=== PATIENT | female | born 1960 | race Caucasian/White ===

== ENCOUNTER 2018-11-05 20:00 | Observation (INO) | payer BC ==
[2018-11-05] MEDS ORDERED: Sodium Chloride 0.9% 10 ML Syringe FLUSH PRN ×2 (20:27→21:53)
[2018-11-05] MEDS ORDERED: Ondansetron 4 MG/2 ML SDV ONE (20:29)
[2018-11-05] MEDS ORDERED: Ondansetron 4 MG/2 ML SDV IVPUSH ONE (20:34)
--- NOTE | 2018-11-05 20:34 | EDM.PDOC ---
ED HPI GENERAL MEDICAL PROBLEM - General Chief Complaint: ENT Problem Stated Complaint: Dizziness Time Seen by Provider: 11/05/18 20:25 Source of Information: Reports: Patient History Limitations: Reports: No Limitations - History of Present Illness INITIAL COMMENTS - FREE TEXT/NARRATIVE: 58 YO WF presents to ER complaining of dizziness which began this am around 7am. Pt reports her alarm clock went off and she turned over to turn it off when she began to feel dizzy like the room was spinning and felt nauseated. Pt reports dizziness improved when she lays still and doesn't move her head. Pt reports she's able to sit up without dizziness but as soon as she turns her head she begins to feel dizziness/spinning sensation with associated nausea and vomiting x 4 today. Pt denies chest pain, shortness of breath or diaphoresis. Pt denies tinnitus, recent URI or sinusitis, no hearing loss or ear pain. Pt denies headache, fever/chills, or vaginal/rectal bleeding. Onset: Today Onset Date: 11/05/18 Onset Time: 07:00 Location: Reports: Head, Generalized Quality: Reports: Dull Severity: Moderate Improves with: Reports: Rest Worsens with: Reports: Movement Associated Symptoms: Reports: Nausea/Vomiting. 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 Denies: Ear Pain, Rhinitis, Sinus Problem, Vision Change Respiratory: Reports: No Symptoms Cardiovascular: Reports: No Symptoms Endocrine: Reports: No Symptoms GI/Abdominal: Reports: No Symptoms : Reports: No Symptoms Musculoskeletal: Reports: No Symptoms Skin: Reports: No Symptoms Neurological: Reports: Dizziness. Denies: Headache, Numbness, Paresthesia, Pre- Existing Deficit, Seizure, Syncope, Tingling, Trouble Speaking, Difficulty Walking, Weakness, Change in Speech, Gait Disturbance Psychiatric: Reports: No Symptoms Hematologic/Lymphatic: Reports: No Symptoms Immunologic: Reports: No Symptoms ED EXAM, DIZZINESS - Physical Exam Exam: See Below Exam Limited By: No Limitations General Appearance: Alert, WD/WN, No Apparent Distress Eye Exam: Bilateral Eye: EOMI, Nystagmus Nystagmus: worsens with head to L, worsens with head to R, reproducible, short duration Ears: Normal External Exam, Normal Canal, Hearing Grossly Normal, Normal TMs Nose: Normal Inspection, Normal Mucosa, No Blood Throat/Mouth: Normal Inspection, Normal Lips, Normal Teeth, Normal Gums, Normal Oropharynx, Normal Voice, No Airway Compromise Head Exam: Atraumatic, Normocephalic Vertigo: worsens with head to L, worsens with head to R, reproducible, short duration Neck: Normal Inspection, Supple, Non-Tender, Full Range of Motion Respiratory/Chest: No Respiratory Distress, Lungs Clear, Normal Breath Sounds, No Accessory Muscle Use, Chest Non-Tender Cardiovascular: Normal Peripheral Pulses, Regular Rate, Rhythm, No Edema, No Gallop, No JVD, No Murmur, No Rub GI/Abdominal: Normal Bowel Sounds, Soft, Non-Tender, No Organomegaly, No Distention, No Abnormal Bruit, No Mass Neurological: Alert, Normal Mood/Affect, Normal Dorsiflexion, CN II-XII Intact, Normal Gait, Normal Reflexes, No Motor/Sensory Deficits, Oriented x 3 Back Exam: Normal Inspection, Full Range of Motion, NT Extremities: Normal Inspection, Normal Range of Motion, Non-Tender, No Pedal Edema, Normal Capillary Refill Psychiatric: Normal Affect, Normal Mood Skin Exam: Warm, Dry, Intact, Normal Color, No Rash EKG INTERPRETATION EKG Date: 11/05/18 Time: 21:10 Rhythm: NSR Rate (Beats/Min): 74 [place]: Normal P-Wave: Present QRS: Normal ST-T: Normal QT: Normal Comparison: NA - No Prior EKG Course - Vital Signs Last Recorded V/S: Last Vital Signs Temp 36.1 C 11/05/18 20:05 Pulse 78 11/05/18 20:05 Resp 20 11/05/18 20:05 BP 129/62 11/05/18 20:05 Pulse Ox 20 L 11/05/18 20:05 - Orders/Labs/Meds Orders: Active Orders 24 hr Category Date Time Status Cardiac Monitoring [RC] . DIRECTED Care 11/05/18 20:27 Ordered EKG Documentation Completion [RC] ASDIRECTED Care 11/05/18 20:26 Ordered Orthostatic Vital Signs [RC] ASDIRECTED Care 11/05/18 20:27 Ordered Peripheral IV Care [RC] . DIRECTED Care 11/05/18 20:27 Ordered Head wo Cont [CT] Stat Exams 11/05/18 20:26 Ordered CBC WITH AUTO DIFF [HEME] Stat Lab 11/05/18 20:26 Ordered MANUAL DIFFERENTIAL QA/NC [HEME] Stat Lab 11/05/18 20:25 Results Sodium Chloride 0.9% @ 999 MLS/HR (1000ml) Med 11/05/18 20:43 Ordered Sodium Chloride 0.9% [Normal Saline] 1,000 ml IV .BOLUS Sodium Chloride 0.9% [Saline Flush] Med 11/05/18 20:27 Ordered 10 ml FLUSH Q8HR PRN Peripheral IV Insertion Adult [OM.PC] Routine Oth 11/05/18 20:27 Ordered EKG 12 Lead [EK] Routine Ther 11/05/18 20:26 Ordered Medication Orders Sodium Chloride (Normal Saline) 1,000 mls @ 999 mls/hr IV .BOLUS ONE Stop: 11/05/18 21:43 Last Admin: 11/05/18 21:07 Dose: 999 mls/hr Sodium Chloride (Saline Flush) 10 ml FLUSH Q8HR PRN PRN Reason: keep vein open Labs: Laboratory Tests 11/05/18 11/05/18 Range/Units 20:25 20:25 WBC 7.83 (5.00-10.00) 10^3/uL RBC 5.22 (3.80-5.50) 10^6/uL Hgb 13.8 (12.0-16.0) g/dL Hct 42.6 (37.0-47.0) % MCV 81.6 L (82.0-92.0) fL MCH 26.4 L (27.0-31.0) pg MCHC 32.4 (32.0-36.0) g/dL RDW 14.5 (11.5-14.5) % Plt Count 287 (150-400) 10^3/uL MPV 9.9 (7.4-10.4) fL Add Manual Diff Yes Neutrophils % (Manual) 93 H (50-70) % Band Neutrophils % 1 L (4-12) % Lymphocytes % (Manual) 5 L (20-40) % Monocytes % (Manual) 1 L (2-8) % Absolute Neutrophils 7.28 Band Neutrophils # 0.08 Lymphocytes # (Manual) 0.39 Monocytes # (Manual) 0.08 Sodium 141 (136-145) mmol/L Potassium 4.1 (3.3-5.3) mmol/L Chloride 105 (98-115) mmol/L Carbon Dioxide 25.2 (21.0-32.0) mmol/L Anion Gap 14.9 (5-15) mmol/L BUN 14 (6-25) mg/dL Creatinine 0.65 (0.51-1.17) mg/dL Est Cr Clr Drug Dosing 92.86 mL/min Estimated GFR (MDRD) > 60 mL/min Glucose 143 H (75 - 99) mg/dL Calcium 9.5 (8.7-10.3) mg/dL Total Bilirubin 0.5 (0.2-1.0) mg/dL AST 18 (15-37) U/L ALT 22 (12-78) U/L Alkaline Phosphatase 51 (46-116) IU/L Creatine Kinase 117 (26-276) U/L CK-MB (CK-2) 2.60 (0.00-4.30) ng/mL Troponin I < 0.04 (0.00-0.070) ng/mL Total Protein 7.3 (6.4-8.2) g/dL Albumin 3.83 (3.00-4.80) g/dL Meds: Medications Generic Name Dose Route Start Last Admin Trade Name Freq PRN Reason Stop Dose Admin Sodium Chloride 1,000 mls @ 999 mls/hr 11/05/18 20:43 11/05/18 21:07 Normal Saline IV 11/05/18 21:43 999 mls/hr .BOLUS ONE Administration Sodium Chloride 10 ml 11/05/18 20:27 Saline Flush FLUSH Q8HR PRN keep vein open Discontinued Medications Generic Name Dose Route Start Last Admin Trade Name Freq PRN Reason Stop Dose Admin Meclizine HCl 50 mg 11/05/18 20:35 11/05/18 21:03 Antivert PO 11/05/18 20:36 50 mg ONETIME ONE Administration Ondansetron HCl Confirm 11/05/18 20:29 11/05/18 21:07 Zofran Administered 11/05/18 20:30 Not Given Dose 4 mg .ROUTE .STK-MED ONE Ondansetron HCl 4 mg 11/05/18 20:34 11/05/18 20:52 Zofran IVPUSH 11/05/18 20:35 4 mg ONETIME ONE Administration - Radiology Interpretation Free Text/Narrative:: CT Head- NAD; sphenoid sinus thickening on left - Re-Assessments/Exams Free Text/Narrative Re-Assessment/Exam: 11/05/18 21:40 symptoms improved but unresolved. will observe overnight and give medications PRN Departure - Departure Time of Disposition: 21:40 Disposition: Refer to Observation Condition: Fair Clinical Impression: Vertigo, Hyperglycemia - Discharge Information Instructions: Hyperglycemia, [id number], Vertigo Forms: ED Department Discharge Additional Instructions: 1. discharge home 2. antivert 25mg PO TID 3. zofran 4mg ODT every 6 hours as needed for nausea 4. zyrtec 10mg everyday 5. follow up in clinic for recheck next 48 hours 6. return to ER for worsening symptoms - My Orders Last 24 Hours: My Active Orders 11/05/18 20:25 MANUAL DIFFERENTIAL QA/NC [HEME] Stat 11/05/18 20:26 EKG Documentation Completion [RC] ASDIRECTED Head wo Cont [CT] Stat CBC WITH AUTO DIFF [HEME] Stat EKG 12 Lead [EK] Routine 11/05/18 20:27 Cardiac Monitoring [RC] . DIRECTED Orthostatic Vital Signs [RC] ASDIRECTED Peripheral IV Care [RC] . DIRECTED Sodium Chloride 0.9% [Saline Flush] 10 ml FLUSH Q8HR PRN Peripheral IV Insertion Adult [OM.PC] Routine 11/05/18 20:43 Sodium Chloride 0.9% @ 999 MLS/HR (1000ml) Sodium Chloride 0.9% [Normal Saline] 1,000 ml IV .BOLUS - Assessment/Plan Last 24 Hours: My Active Orders 11/05/18 20:25 MANUAL DIFFERENTIAL QA/NC [HEME] Stat 11/05/18 20:26 EKG Documentation Completion [RC] ASDIRECTED Head wo Cont [CT] Stat CBC WITH AUTO DIFF [HEME] Stat EKG 12 Lead [EK] Routine 11/05/18 20:27 Cardiac Monitoring [RC] . DIRECTED Orthostatic Vital Signs [RC] ASDIRECTED Peripheral IV Care [RC] . DIRECTED Sodium Chloride 0.9% [Saline Flush] 10 ml FLUSH Q8HR PRN Peripheral IV Insertion Adult [OM.PC] Routine 11/05/18 20:43 Sodium Chloride 0.9% @ 999 MLS/HR (1000ml) Sodium Chloride 0.9% [Normal Saline] 1,000 ml IV .BOLUS Assessment:: 1. Vertigo- mild improved after ativert/zofran 2. Hyperglycemia- recommend HgbA1C 3. sphenoid inflammation- acute vs chronic sinusitis Plan: 1. admit to obs- Dr Jordan 2. antivert 25mg PO TID 3. zofran 4mg IV every 4 hours as needed for nausea 4. zyrtec 10mg everyday 5. Augmentin 875mg PO BID 6. HgbA1C in am 7. NS @125cc/hr
[2018-11-05] MEDS ORDERED: Meclizine 25 MG Tab PO ONE (20:35)
[2018-11-05] MEDS ORDERED: Sodium Chloride 0.9% 1,000 ML IV ONE (20:43)
[2018-11-05 21:02] LABS: ANION GAP 14.9 mmol/L (5-15); CHLORIDE,CL 105 mmol/L (98-115); SODIUM,NA 141 mmol/L (136-145)
[2018-11-05] MEDS ORDERED: methylPREDNISolone Acetate 80 MG/ML SDV IM ONE (21:45)
[2018-11-05] MEDS ORDERED: Dexamethasone 10 MG/ML SDV IVPUSH ONE (21:46)
[2018-11-05] MEDS ORDERED: LORazepam 2 MG/ML SDV IV PRN (21:53)
[2018-11-05] MEDS: Sodium Chloride 0.9% 1,000 ML IV SCH (22:30)
[2018-11-06] MEDS: Ondansetron 4 MG/2 ML SDV IV PRN ×2 (05:32→12:58)
[2018-11-06] MEDS: Meclizine 25 MG Tab PO PRN ×2 (05:37→12:58)
[2018-11-06] MEDS: Sodium Chloride 0.9% 1,000 ML IV SCH ×2 (06:31→13:58)
[2018-11-06 07:57] LABS: HEMOGLOBIN A1C 5.9 % (4.3-5.7)
--- NOTE | 2018-11-06 08:01 | CT ---
[id number] CT/CT Head WO IV EXAM: CT Head WO IV CLINICAL DATA: DIZZINESS COMPARISON STUDY: None FINDINGS: No intracranial hemorrhage, extra-axial fluid collection, mass, or acute ischemia. Hypodense beam artifact is seen on series 7 image 17. Overall, no significant white matter gliosis identified. Partially empty sella, nonspecific in etiology. Mild paranasal sinusitis. Partial left mastoid effusion. IMPRESSION: No acute findings in the brain. Sphenoid sinusitis. Partial left mastoid effusion. Reagan Santos MD 11/06/18 0800 Thank you for allowing us to participate in the care of your patient.
--- NOTE | 2018-11-06 16:37 | PCM.PN ---
- General Info Date of Service: 11/06/18 Admission Dx/Problem (Free Text): Vertigo - Review of Systems Systems Review Comment:: June is seen today on observation rounds. She was admitted on 11/05/18 with vertigo and vomiting. She woke up on 11/05/18 and looked at her alarm clock and said "that's funny, it's double". She states when she turned her head she felt like the room was spinning. This worsened as the day went on and she developed vomiting from the vertigo. She had a CT of the head performed which showed some sinusitis but she was not symptomatic from this and denies being ill recently. She had PT eval and treat this morning for Anca's maneuvers and this helped somewhat as she states this afternoon that "I was actually able to sit up on the side of my bed and not get sick". She has been resting most of the day. She has been eating well. She is receiving IVF's. She has a brother with Meniere's disease. - Patient Data Vitals - Most Recent: Last Vital Signs Temp 98.7 F 11/06/18 11:00 Pulse 88 11/06/18 11:00 Resp 16 11/06/18 11:00 BP 123/77 11/06/18 11:00 Pulse Ox 93 L 11/06/18 11:00 Weight - Most Recent: 160 lb I&O - Last 24 Hours: Intake & Output 11/06/18 11/06/18 11/06/18 06:59 14:59 22:59 Intake Total 907 1281 Output Total 200 Balance 907 1081 Lab Results Last 24 Hours: Laboratory Results - last 24 hr 11/05/18 11/05/18 11/06/18 Range/Units 20:25 20:25 07:25 WBC 7.83 (5.00-10.00) 10^3/uL RBC 5.22 (3.80-5.50) 10^6/uL Hgb 13.8 (12.0-16.0) g/dL Hct 42.6 (37.0-47.0) % MCV 81.6 L (82.0-92.0) fL MCH 26.4 L (27.0-31.0) pg MCHC 32.4 (32.0-36.0) g/dL RDW 14.5 (11.5-14.5) % Plt Count 287 (150-400) 10^3/uL MPV 9.9 (7.4-10.4) fL Add Manual Diff Yes Neutrophils % (Manual) 93 H (50-70) % Band Neutrophils % 1 L (4-12) % Lymphocytes % (Manual) 5 L (20-40) % Monocytes % (Manual) 1 L (2-8) % Absolute Neutrophils 7.28 Band Neutrophils # 0.08 Lymphocytes # (Manual) 0.39 Monocytes # (Manual) 0.08 Sodium 141 (136-145) mmol/L Potassium 4.1 (3.3-5.3) mmol/L Chloride 105 (98-115) mmol/L Carbon Dioxide 25.2 (21.0-32.0) mmol/L Anion Gap 14.9 (5-15) mmol/L BUN 14 (6-25) mg/dL Creatinine 0.65 (0.51-1.17) mg/dL Est Cr Clr Drug Dosing 92.86 mL/min Estimated GFR (MDRD) > 60 mL/min Glucose 143 H (75 - 99) mg/dL Hemoglobin A1c 5.9 H (4.3-5.7) % Calcium 9.5 (8.7-10.3) mg/dL Total Bilirubin 0.5 (0.2-1.0) mg/dL AST 18 (15-37) U/L ALT 22 (12-78) U/L Alkaline Phosphatase 51 (46-116) IU/L Creatine Kinase 117 (26-276) U/L CK-MB (CK-2) 2.60 (0.00-4.30) ng/mL Troponin I < 0.04 (0.00-0.070) ng/mL Total Protein 7.3 (6.4-8.2) g/dL Albumin 3.83 (3.00-4.80) g/dL Med Orders - Current: Current Medications Sodium Chloride (Normal Saline) 1,000 mls @ 125 mls/hr IV ASDIRECTED [facility] Last Admin: 11/06/18 13:58 Dose: 125 mls/hr Lorazepam (Ativan) 1 mg IV Q6H PRN PRN Reason: Nausea/Vomiting Last Admin: 11/06/18 00:21 Dose: 1 mg Meclizine HCl (Antivert) 25 mg PO TID PRN PRN Reason: Dizziness Last Admin: 11/06/18 12:58 Dose: 25 mg Ondansetron HCl (Zofran) 4 mg IV Q4H PRN PRN Reason: Nausea/Vomiting Last Admin: 11/06/18 12:58 Dose: 4 mg Sodium Chloride (Saline Flush) 10 ml FLUSH Q8HR PRN PRN Reason: keep vein open Discontinued Medications Dexamethasone (Dexamethasone) 8 mg IVPUSH ONETIME ONE Stop: 11/05/18 21:47 Last Admin: 11/05/18 22:40 Dose: 8 mg Sodium Chloride (Normal Saline) 1,000 mls @ 999 mls/hr IV .BOLUS ONE Stop: 11/05/18 21:43 Last Admin: 11/05/18 21:07 Dose: 999 mls/hr Meclizine HCl (Antivert) 50 mg PO ONETIME ONE Stop: 11/05/18 20:36 Last Admin: 11/05/18 21:03 Dose: 50 mg Methylprednisolone Acetate (Depo-Medrol) 80 mg IM ONETIME ONE Stop: 11/05/18 21:46 Last Admin: 11/05/18 22:37 Dose: 80 mg Ondansetron HCl (Zofran) Confirm Administered Dose 4 mg .ROUTE .STK-MED ONE Stop: 11/05/18 20:30 Last Admin: 11/05/18 21:07 Dose: Not Given Ondansetron HCl (Zofran) 4 mg IVPUSH ONETIME ONE Stop: 11/05/18 20:35 Last Admin: 11/05/18 20:52 Dose: 4 mg Sodium Chloride (Saline Flush) 10 ml FLUSH Q8HR PRN PRN Reason: keep vein open - Exam General: Alert, Oriented, Cooperative, No Acute Distress Lungs: Clear to Auscultation, Normal Respiratory Effort Cardiovascular: Regular Rate, Regular Rhythm, No Murmurs Extremities: No Pedal Edema - Problem List & Annotations (1) Vertigo SNOMED Code(s): 981542535 Code(s): R42 - DIZZINESS AND GIDDINESS Status: Acute Current Visit: No - Problem List Review Problem List Initiated/Reviewed/Updated: Yes - My Orders Last 24 Hours: My Active Orders 11/06/18 08:42 PT Evaluation and Treatment [CONS] Routine - Assessment Assessment:: Vertigo - Plan Plan:: Vertigo. Continue with meclizine and zofran. Continue IVF's. Can be discontinued if she has high urine output. Will discontinue telemetry. Anticipate discharge in the AM if things go well overnight.
[2018-11-07 06:12] VITALS: BP 131/90; PULSE 70
[2018-11-07 08:45] LABS: ANION GAP 9.7 mmol/L (5-15); CHLORIDE,CL 110 mmol/L (98-115); SODIUM,NA 142 mmol/L (136-145)
--- NOTE | 2018-11-07 10:39 | PCM.DCSUM1 ---
Discharge Summary - Hospital Course Free Text/Narrative:: June is being discharged from an observation stay 11/05/18 - 11/07/18. She was admitted through the ER with severe vertigo and vomiting secondary to the vertigo. CT of the head was negative with exception of some sinusitis, yet she is completely asymptomatic from this. She was on telemetry for close to 24 hours with no cardiac events. Labs were largely unremarkable with the exception of an initial BG of 146, A1C was 5.9, no personal hx of diabetes and BG this AM on labs was 86. She had a PT eval and treat with Anca's maneuver on 11/06/18. She also received depo-medrol 80 mg and dexamethasone 8 mg IM and the combination of these therapies seems to have helped. This AM she has virtually no dizziness. She has not had any antiemetics since noon on 11/06/18. Appetite has been good. She feels ready to go home. Diagnosis: Stroke: No Modified Emily Scale: No Signif.Disability Despite Sympt.Able to Carry Out Usual Act./Duties Modified [place] Scale Score: 1 - Discharge Data Discharge Date: 11/07/18 Discharge Disposition: Home, Self-Care 01 Condition: Good - Discharge Diagnosis/Problem(s) (1) Vertigo SNOMED Code(s): 874456021 ICD Code: R42 - DIZZINESS AND GIDDINESS Status: Acute Current Visit: No - Patient Summary/Data Consults: Consultations 11/06/18 08:42 PT Evaluation and Treatment [CONS] Routine - Patient Instructions Diet: Regular Diet as Tolerated Activity: Rest and Relax Today - Discharge Plan *PRESCRIPTION DRUG MONITORING PROGRAM REVIEWED*: Not Applicable *COPY OF PRESCRIPTION DRUG MONITORING REPORT IN PATIENT PINA: Not Applicable Home Medications: Home Meds Meclizine [Antivert] 25 mg PO TID PRN tablet 11/07/18 [Rx] Patient Handouts: Vertigo, Hyperglycemia, Owpk-py-Skoy Forms: ED Department Discharge Referrals: PCP,None [Ordering Only Provider] - - Discharge Summary/Plan Comment DC Time >30 min.: No - General Info Date of Service: 11/07/18 Admission Dx/Problem (Free Text: Vertigo - Review of Systems Systems Review Comment: She is feeling markedly better today. - Patient Data Vitals - Most Recent: Last Vital Signs Temp 98.2 F 11/07/18 06:12 Pulse 70 11/07/18 06:12 Resp 18 11/07/18 06:12 BP 131/90 11/07/18 06:12 Pulse Ox 91 L 11/07/18 06:12 Weight - Most Recent: 160 lb I&O - Last 24 hours: Intake & Output 11/06/18 11/07/18 11/07/18 22:59 06:59 14:59 Intake Total 1056 50 Output Total 450 600 Balance 606 -550 Lab Results - Last 24 hrs: Laboratory Results - last 24 hr 11/07/18 11/07/18 Range/Units 08:00 08:00 WBC 7.41 (5.00-10.00) 10^3/uL RBC 4.14 (3.80-5.50) 10^6/uL Hgb 11.2 L D (12.0-16.0) g/dL Hct 34.0 L (37.0-47.0) % MCV 82.1 (82.0-92.0) fL MCH 27.1 (27.0-31.0) pg MCHC 32.9 (32.0-36.0) g/dL RDW 14.9 H (11.5-14.5) % Plt Count 236 (150-400) 10^3/uL MPV 10.2 (7.4-10.4) fL Immature Gran % (Auto) 0.1 (0.0-5.0) % Neut % (Auto) 64.1 (50.0-70.0) % Lymph % (Auto) 25.2 (20.0-40.0) % Ocean % (Auto) 8.6 H (2.0-8.0) % Eos % (Auto) 1.2 (1.0-3.0) % Baso % (Auto) 0.8 (0.0-1.0) % Immature Gran # (Auto) 0.01 (0.00-0.50) 10^3/uL Neut # (Auto) 4.74 (2.50-7.00) 10^3/uL Lymph # (Auto) 1.87 (1.00-4.00) 10^3/uL [place] # (Auto) 0.64 (0.10-0.80) 10^3/uL Eos # (Auto) 0.09 L (0.10-0.30) 10^3/uL Baso # (Auto) 0.06 (0.00-0.10) 10^3/uL Sodium 142 (136-145) mmol/L Potassium 3.6 (3.3-5.3) mmol/L Chloride 110 (98-115) mmol/L Carbon Dioxide 25.9 (21.0-32.0) mmol/L Anion Gap 9.7 (5-15) mmol/L BUN 14 (6-25) mg/dL Creatinine 0.73 (0.51-1.17) mg/dL Est Cr Clr Drug Dosing 82.68 mL/min Estimated GFR (MDRD) > 60 mL/min Glucose 86 (75 - 99) mg/dL Calcium 8.4 L (8.7-10.3) mg/dL Med Orders - Current: Current Medications Sodium Chloride (Normal Saline) 1,000 mls @ 125 mls/hr IV ASDIRECTED [facility] Last Admin: 11/06/18 13:58 Dose: 125 mls/hr Lorazepam (Ativan) 1 mg IV Q6H PRN PRN Reason: Nausea/Vomiting Last Admin: 11/06/18 00:21 Dose: 1 mg Meclizine HCl (Antivert) 25 mg PO TID PRN PRN Reason: Dizziness Last Admin: 11/06/18 12:58 Dose: 25 mg Ondansetron HCl (Zofran) 4 mg IV Q4H PRN PRN Reason: Nausea/Vomiting Last Admin: 11/06/18 12:58 Dose: 4 mg Sodium Chloride (Saline Flush) 10 ml FLUSH Q8HR PRN PRN Reason: keep vein open Discontinued Medications Dexamethasone (Dexamethasone) 8 mg IVPUSH ONETIME ONE Stop: 11/05/18 21:47 Last Admin: 11/05/18 22:40 Dose: 8 mg Sodium Chloride (Normal Saline) 1,000 mls @ 999 mls/hr IV .BOLUS ONE Stop: 11/05/18 21:43 Last Admin: 11/05/18 21:07 Dose: 999 mls/hr Meclizine HCl (Antivert) 50 mg PO ONETIME ONE Stop: 11/05/18 20:36 Last Admin: 11/05/18 21:03 Dose: 50 mg Methylprednisolone Acetate (Depo-Medrol) 80 mg IM ONETIME ONE Stop: 11/05/18 21:46 Last Admin: 11/05/18 22:37 Dose: 80 mg Ondansetron HCl (Zofran) Confirm Administered Dose 4 mg .ROUTE .STK-MED ONE Stop: 11/05/18 20:30 Last Admin: 11/05/18 21:07 Dose: Not Given Ondansetron HCl (Zofran) 4 mg IVPUSH ONETIME ONE Stop: 11/05/18 20:35 Last Admin: 11/05/18 20:52 Dose: 4 mg Sodium Chloride (Saline Flush) 10 ml FLUSH Q8HR PRN PRN Reason: keep vein open - Exam General: Reports: Alert, Oriented, Cooperative, No Acute Distress Lungs: Reports: Clear to Auscultation, Normal Respiratory Effort Cardiovascular: Reports: Regular Rate, Regular Rhythm, No Murmurs GI/Abdominal Exam: Normal Bowel Sounds
== END 2018-11-07 14:13 | disposition home or self-care (01) ==
LOC: KA.ED 20:00 → KA.MS 21:50
PROVIDERS: ADMIT Physician Assistant Medical; ATTEND Internal Medicine
DX: R42 Dizziness and giddiness (principal); J32.9 Chronic sinusitis, unspecified; R73.9 Hyperglycemia, unspecified; Z91.011 Allergy to milk products; Z91.040 Latex allergy status
CPT/HCPCS: 36415; 70450; 80048; 80053; 82550; 82553; 83036; 84484; 85025; 93005; 96361; 96372; 96374; 96375; 96376; 99285; A9270; G0378; J1040; J1100; J2060; J2405; J7030; 97140-GP; 97161-GP